=== PATIENT | male | born 1990 | race Caucasian/White ===

== ENCOUNTER 2018-12-31 09:36 | Observation (INO) | payer BC, OTHER ==
[2018-12-31 09:42] VITALS: BMI 34.9
[2018-12-31] MEDS ORDERED: DiphenhydrAMINE 50 mg/ml Inj IV STA (10:12)
[2018-12-31] MEDS ORDERED: Piperacillin/Tazobact 4.5 GM in Sodium Chloride 0.9% 100 ML IVPB STA (10:12)
[2018-12-31] MEDS ORDERED: Sodium Chloride 0.9% 1,000 ML IV STA (10:12)
--- NOTE | 2018-12-31 10:30 | ED PDOC ---
Upper Extremity Pain/Injury Time Seen by Provider: 12/31/18 10:05 Chief Complaint (Nursing): Upper Extremity Problem/Injury Chief Complaint (Provider): Upper Extremity Problem/Injury History Per: Patient History/Exam Limitations: no limitations Onset/Duration Of Symptoms: Days (1) Additional Complaint(s): 28 y/o male presents to the ED complaining of redness, pain, swelling, and itchiness on right dorsum of the hand since yesterday. Patient states the redness progressed up the arm overnight and now into his lower tricep. Patient is unsure if its a bite by something though does note inset bite lesion on dorsum of the hand. He reports he is an employee for a [employer] industry. Patient denies injuries, working with plants or animals, trauma, fever, weakness, or any prior history of skin infections. PMD: none provided Past Medical History Reviewed: Historical Data, Nursing Documentation, Vital Signs Vital Signs: Last Vital Signs Temp 98.8 F 12/31/18 09:42 Pulse 62 12/31/18 09:42 Resp 16 12/31/18 09:42 BP 105/69 12/31/18 09:42 Pulse Ox 96 12/31/18 09:42 Primary Care Provider: Non [facility] Provider, - Medical History PMH: Denies: Chronic Kidney Disease - Surgical History Surgical History: No Surg Hx - Family History Family History: States: No Known Family Hx - Social History Current smoker - smoking cessation education provided: No Alcohol: None - Immunization History Hx Tetanus Toxoid Vaccination: No - Home Medications Home Medications: Ambulatory Orders Medication Instructions Recorded Amoxicillin/Clavulanate [Augmentin 1 tab PO BID #14 tab 01/01/19 875 MG-125 MG] - Allergies Allergies/Adverse Reactions: Allergies Allergy/AdvReac Type Severity Reaction Status Date / Time No Known Allergies Allergy Unverified 05/03/14 16:52 Review of Systems ROS Statement: Except As Marked, All Systems Reviewed And Found Negative Constitutional: Negative for: Fever, Weakness Musculoskeletal: Positive for: Arm Pain (Right.) Neurological: Negative for: Weakness Physical Exam - Reviewed Nursing Documentation Reviewed: Yes Vital Signs Reviewed: Yes - Physical Exam Appears: Positive for: Well, Non-toxic, No Acute Distress Head Exam: Positive for: ATRAUMATIC, NORMAL INSPECTION, NORMOCEPHALIC Skin: Positive for: Normal Color, Warm, Dry Eye Exam: Positive for: EOMI, Normal appearance, PERRL Neck: Positive for: Normal, Painless ROM, Supple Cardiovascular/Chest: Positive for: Regular Rate, Rhythm. Negative for: Murmur Respiratory: Positive for: Normal Breath Sounds. Negative for: Wheezing Gastrointestinal/Abdominal: Positive for: Normal Exam, Soft. Negative for: Tenderness Back: Positive for: Normal Inspection. Negative for: L CVA Tenderness, R CVA Tenderness Extremity: Positive for: Normal ROM, Other (Erythematous endema to dorsum of right hand. Punctual questionable insect bite with tracking lymphangitis up the posterior arm into the lower tricep.) Neurological/Psych: Positive for: Awake, Alert, Normal Tone, Oriented (x3). Negative for: Motor/Sensory Deficits - Laboratory Results Result Diagrams: 01/01/19 05:55 01/01/19 05:55 - ECG O2 Sat by Pulse Oximetry: 96 Medical Decision Making Medical Decision Making: Time:1010 Impression:Likely cellulites with lymphangitis. Area marked with serum marker. Will obtain labs, antibiotics, and dose of Benadryl. Plan: -CMP -Magnesium -CBC -Benadryl 50mg (trial) -Sodium chloride -Zosyn -Blood culture ------- WBC normal given tracking of erythema up R arm in lymphangetic distribution, admit Obs for cellulitis d/w Dr Saxena and care was transferred Scribe Attestation: Documented by Flor Gallegos, acting as a scribe for Irving Swann III. Provider Scribe Attestation: All medical record entries made by the Scribe were at my direction and personally dictated by me. I have reviewed the chart and agree that the record accurately reflects my personal performance of the history, physical exam, medical decision making, and the department course for this patient. I have also personally directed, reviewed, and agree with the discharge instructions and disposition. Disposition - Clinical Impression Clinical Impression: Cellulitis of skin with lymphangitis - Patient ED Disposition Is Patient to be Admitted: Yes - Disposition Disposition Time: 12:30 Condition: STABLE - Pt Status Changed To: Hospital Disposition Of: Observation
[2018-12-31] MEDS ORDERED: DiphenhydrAMINE 50 mg/ml Inj ONE (10:39)
[2018-12-31 10:50] LABS: BASO % 0.5 % (0.0-2.0); EOS # 0.3 K/uL (0.0-0.7); EOS % 3.8 % (0.0-4.0); HEMOGLOBIN 14.4 g/dL (12.0-18.0); MEAN CORPUSCULAR HEMOGLOBIN 30.5 pg (27.0-31.0); MEAN CORPUSCULAR HGB CONC 33.8 g/dL (33.0-37.0); MEAN PLATELET VOLUME 8.6 fl (7.2-11.7); MONO # 0.4 K/uL (0.0-0.8); MONO % 6.6 % (0.0-10.0); NEUT # 3.9 K/uL (1.8-7.0); NEUT % 59.1 % (50.0-75.0); RBC 4.74 Mil/uL (4.40-5.90); RED CELL DISTRIBUTION WIDTH 14.3 % (11.5-14.5); WHITE BLOOD COUNT 6.6 K/uL (4.8-10.8)
[2018-12-31 11:02] LABS: BLOOD UREA NITROGEN 13 mg/dl (9-20); CALCIUM 8.8 mg/dL (8.4-10.2); GFR NON-AFRICAN AMERICAN > 60
[2018-12-31 11:03] LABS: ALB/GLOB RATIO 1.3 (1.0-2.1); ALBUMIN 4.5 g/dL (3.5-5.0); ALT/SGPT 36 U/L (21-72); AST/SGOT 37 U/L (17-59)
--- NOTE | 2018-12-31 13:02 | CP.PCM.HP ---
<AdrianeTreasure - Last Filed: 12/31/18 16:49> History of Present Illness - History of Present Illness History of Present Illness: 28 yo male with no medical history presented to the ED because of right hand and arm erythema. Associated with swelling and pruritis. States that the erythema started yesterday and has increase and began tracking up his right arm. Patient reports he has had multiple mosquito bites in the past 2 weeks, but does not remember an insect biting him in that area. Denies fevers, chills, trauma to the area, working with plants or animals, weakness, or any prior history of skin infections. Ros: negative except for stated above in HPI. PMD: none Family history: Aunt with throat and lung cancer. Family members with heart disease and DM. Social: social drinking, no history of smoking or illicit drug use. Medical history: none Surgical history: denies Medications: none. ED course: Afebrile, vital signs stable - Zosyn x1 dose - Benadryl 50mg IVP - NS 1 L bolus - Blood culture - CBC, CMP, Mag Present on Admission - Present on Admission Any Indicators Present on Admission: No Past Patient History - Past Medical History & Family History Past Medical History?: No - Past Social History Alcohol: None - CARDIAC Hx Cardiac Disorders: No - PULMONARY Hx Respiratory Disorders: No - NEUROLOGICAL Hx Neurological Disorder: No - HEENT Hx HEENT Problems: No - RENAL Hx Chronic Kidney Disease: No - ENDOCRINE/METABOLIC Hx Endocrine Disorders: No - HEMATOLOGICAL/ONCOLOGICAL Hx Blood Disorders: No - INTEGUMENTARY Hx Dermatological Problems: No - MUSCULOSKELETAL/RHEUMATOLOGICAL Hx Musculoskeletal Disorders: No - GASTROINTESTINAL Hx Gastrointestinal Disorders: No - GENITOURINARY/GYNECOLOGICAL Hx Genitourinary Disorders: Yes Other/Comment: HYDROCELE - PSYCHIATRIC Hx Psychophysiologic Disorder: No Hx Substance Use: No - SURGICAL HISTORY Hx Surgeries: Yes Other/Comment: hydrocelectomy on 05/05/2014 - ANESTHESIA Hx Anesthesia: Yes Meds Allergies/Adverse Reactions: Allergies Allergy/AdvReac Type Severity Reaction Status Date / Time No Known Allergies Allergy Unverified 05/03/14 16:52 Physical Exam - Constitutional Appears: Non-toxic, No Acute Distress - Head Exam Head Exam: NORMAL INSPECTION - Eye Exam Eye Exam: Normal appearance - ENT Exam ENT Exam: Mucous Membranes Moist, Normal Exam - Neck Exam Neck exam: Positive for: Normal Inspection - Respiratory Exam Respiratory Exam: Clear to Auscultation Bilateral, NORMAL BREATHING PATTERN. absent: Accessory Muscle Use, Chest Wall Tenderness, Decreased Breath Sounds, Prolonged Expiratory Phase, Rales, Rhonchi, Wheezes, Respiratory Distress, Stridor - Cardiovascular Exam Cardiovascular Exam: REGULAR RHYTHM, +S1, +S2 - GI/Abdominal Exam GI & Abdominal Exam: Normal Bowel Sounds, Soft. absent: Distended, Firm, Guarding, Organomegaly, Pulsatile Mass, Rebound, Rigid, Tenderness - Extremities Exam Extremities exam: Positive for: normal capillary refill, normal inspection, pedal pulses present. Negative for: calf tenderness, joint swelling, pedal edema, tenderness Additional comments: Right hand swollen and erythematous, Insect bite noted at right wrist. Erythema tracking up the right arm until the elbow. - Neurological Exam Neurological exam: Alert, Oriented x3 - Psychiatric Exam Psychiatric exam: Normal Affect, Normal Mood - Skin Skin Exam: Dry, Intact, Normal Color, Warm Results - Vital Signs Recent Vital Signs: Last Vital Signs Temp 98.8 F 12/31/18 09:42 Pulse 62 12/31/18 09:42 Resp 16 12/31/18 09:42 BP 105/69 12/31/18 09:42 Pulse Ox 96 12/31/18 10:43 - Labs Result Diagrams: 12/31/18 10:15 12/31/18 10:15 Labs: Laboratory Results - last 24 hr 12/31/18 12/31/18 10:15 10:15 WBC 6.6 RBC 4.74 Hgb 14.4 Hct 42.7 MCV 90.0 MCH 30.5 MCHC 33.8 RDW 14.3 Plt Count 223 MPV 8.6 Neut % (Auto) 59.1 Lymph % (Auto) 30.0 [place] % (Auto) 6.6 Eos % (Auto) 3.8 Baso % (Auto) 0.5 Neut # (Auto) 3.9 Lymph # (Auto) 2.0 [place] # (Auto) 0.4 Eos # (Auto) 0.3 Baso # (Auto) 0.0 Sodium 136 Potassium 5.1 H Chloride 102 Carbon Dioxide 26 Anion Gap 13 BUN 13 Creatinine 0.6 L Est GFR ( Amer) > 60 Est GFR (Non-Af Amer) > 60 Random Glucose 100 Calcium 8.8 Magnesium 2.0 Total Bilirubin 0.9 AST 37 ALT 36 Alkaline Phosphatase 41 Total Protein 8.0 Albumin 4.5 Globulin 3.6 Albumin/Globulin Ratio 1.3 Assessment & Plan (1) Acute lymphangitis Status: Acute - Assessment and Plan (Free Text) Assessment: 28 yo male with no medical history presented to the ED because of right hand and arm erythema admitted for lymphangitis. Plan: Lymphangitis - Admit to Med/Surg - Afebrile - Insect bite noted on right wrist. - significant erythema and swelling of right hand tracking up the right arm. - Regular diet - Zosyn Q6H DVT prophylaxis - SCD's and ambulation <Arcenio Saxena D - Last Filed: 12/31/18 17:22> Results - Vital Signs Recent Vital Signs: Last Vital Signs Temp 97.9 F 12/31/18 15:48 Pulse 62 12/31/18 15:48 Resp 16 12/31/18 15:48 BP 106/69 12/31/18 15:48 Pulse Ox 99 12/31/18 15:48 - Labs Result Diagrams: 12/31/18 10:15 12/31/18 10:15 Labs: Laboratory Results - last 24 hr 12/31/18 12/31/18 10:15 10:15 WBC 6.6 RBC 4.74 Hgb 14.4 Hct 42.7 MCV 90.0 MCH 30.5 MCHC 33.8 RDW 14.3 Plt Count 223 MPV 8.6 Neut % (Auto) 59.1 Lymph % (Auto) 30.0 [place] % (Auto) 6.6 Eos % (Auto) 3.8 Baso % (Auto) 0.5 Neut # (Auto) 3.9 Lymph # (Auto) 2.0 [place] # (Auto) 0.4 Eos # (Auto) 0.3 Baso # (Auto) 0.0 Sodium 136 Potassium 5.1 H Chloride 102 Carbon Dioxide 26 Anion Gap 13 BUN 13 Creatinine 0.6 L Est GFR ( Amer) > 60 Est GFR (Non-Af Amer) > 60 Random Glucose 100 Calcium 8.8 Magnesium 2.0 Total Bilirubin 0.9 AST 37 ALT 36 Alkaline Phosphatase 41 Total Protein 8.0 Albumin 4.5 Globulin 3.6 Albumin/Globulin Ratio 1.3 Attending/Attestation - Attestation I have personally seen and examined this patient.: Yes I have fully participated in the care of the patient.: Yes I have reviewed all pertinent clinical information: Yes Notes (Text): 12/31/18 17:21 Patient seen and examined with resident. Case discussed and agreed with assessment and plan of management.
[2018-12-31] MEDS: Piperacillin/Tazobact 3.375 GM in Sodium Chloride 0.9% 100 ML IVPB SCH ×2 (13:15→19:16)
[2018-12-31] MEDS ORDERED: DiphenhydrAMINE 12.5 mg/5 ml LIQ UD (5 ml) PO PRN (16:17)
[2018-12-31] MEDS ORDERED: Piperacillin/Tazobact 3.375 gm Inj IVPB ONE (19:13)
[2018-12-31] MEDS ORDERED: DiphenhydrAMINE 50 mg/ml Inj IVP STA (22:56)
[2019-01-01] MEDS: Piperacillin/Tazobact 3.375 GM in Sodium Chloride 0.9% 100 ML IVPB SCH ×2 (01:37→06:19)
[2019-01-01 07:38] LABS: HEMOGLOBIN 13.9 g/dL (12.0-18.0); MEAN CELL VOLUME 89.5 fl (80.0-94.0); MEAN CORPUSCULAR HEMOGLOBIN 30.2 pg (27.0-31.0); MEAN CORPUSCULAR HGB CONC 33.8 g/dL (33.0-37.0); RBC 4.59 Mil/uL (4.40-5.90); RED CELL DISTRIBUTION WIDTH 13.7 % (11.5-14.5)
[2019-01-01 07:47] LABS: BLOOD UREA NITROGEN 18 mg/dl (9-20); GFR NON-AFRICAN AMERICAN > 60
[2019-01-01 08:10] VITALS: BP 97/66; PULSE 58; RESP 22; TEMP 98
--- NOTE | 2019-01-01 09:57 | CP.PCM.DIS ---
Provider - Provider Date of Admission: 12/31/18 12:29 Attending physician: rAcenio Saxena MD Time Spent in preparation of Discharge (in minutes): 25 Diagnosis - Discharge Diagnosis (1) Cellulitis Status: Acute Comment: redness and swelling gradually dissipating. Augmentin 875/125 PO BID for 7 days Hospital Course - Lab Results Lab Results: Most Recent Lab Values WBC 7.0 K/uL (4.8-10.8) 01/01/19 05:55 RBC 4.59 Mil/uL (4.40-5.90) 01/01/19 05:55 Hgb 13.9 g/dL (12.0-18.0) 01/01/19 05:55 Hct 41.1 % (35.0-51.0) 01/01/19 05:55 MCV 89.5 fl (80.0-94.0) 01/01/19 05:55 MCH 30.2 pg (27.0-31.0) 01/01/19 05:55 MCHC 33.8 g/dL (33.0-37.0) 01/01/19 05:55 RDW 13.7 % (11.5-14.5) 01/01/19 05:55 Plt Count 223 K/uL (130-400) 01/01/19 05:55 MPV 8.6 fl (7.2-11.7) 12/31/18 10:15 Neut % (Auto) 59.1 % (50.0-75.0) 12/31/18 10:15 Lymph % (Auto) 30.0 % (20.0-40.0) 12/31/18 10:15 [place] % (Auto) 6.6 % (0.0-10.0) 12/31/18 10:15 Eos % (Auto) 3.8 % (0.0-4.0) 12/31/18 10:15 Baso % (Auto) 0.5 % (0.0-2.0) 12/31/18 10:15 Neut # (Auto) 3.9 K/uL (1.8-7.0) 12/31/18 10:15 Lymph # (Auto) 2.0 K/uL (1.0-4.3) 12/31/18 10:15 [place] # (Auto) 0.4 K/uL (0.0-0.8) 12/31/18 10:15 Eos # (Auto) 0.3 K/uL (0.0-0.7) 12/31/18 10:15 Baso # (Auto) 0.0 K/uL (0.0-0.2) 12/31/18 10:15 Sodium 139 mmol/l (132-148) 01/01/19 05:55 Potassium 4.2 MMOL/L (3.6-5.0) 01/01/19 05:55 Chloride 104 mmol/L (98-107) 01/01/19 05:55 Carbon Dioxide 25 mmol/L (22-30) 01/01/19 05:55 Anion Gap 14 (10-20) 01/01/19 05:55 BUN 18 mg/dl (9-20) 01/01/19 05:55 Creatinine 1.0 mg/dl (0.8-1.5) 01/01/19 05:55 Est GFR ( Amer) > 60 01/01/19 05:55 Est GFR (Non-Af Amer) > 60 01/01/19 05:55 Random Glucose 108 mg/dL (75-110) 01/01/19 05:55 Calcium 9.0 mg/dL (8.4-10.2) 01/01/19 05:55 Magnesium 2.0 MG/DL (1.6-2.3) 12/31/18 10:15 Total Bilirubin 0.9 mg/dl (0.2-1.3) 12/31/18 10:15 AST 37 U/L (17-59) 12/31/18 10:15 ALT 36 U/L (21-72) 12/31/18 10:15 Alkaline Phosphatase 41 U/L (38-126) 12/31/18 10:15 Total Protein 8.0 G/DL (6.3-8.2) 12/31/18 10:15 Albumin 4.5 g/dL (3.5-5.0) 12/31/18 10:15 Globulin 3.6 gm/dL (2.2-3.9) 12/31/18 10:15 Albumin/Globulin Ratio 1.3 (1.0-2.1) 12/31/18 10:15 - Hospital Course Hospital Course: 28 yo male with no significant PMH came in with pain and red swelling of the right hand with linear red streak extending to the arm. Patient was put on observation and started on IV Zosyn and Vanco. Today patient claimed pain was relieved and redness and swelling of the right hand dissipating. Patient was discharged in stable condition and was advised to continue Augmentin 2 times a day for a week. Discharge Exam - Head Exam Head Exam: NORMAL INSPECTION - Eye Exam Eye Exam: absent: Scleral icterus - ENT Exam ENT Exam: Mucous Membranes Moist - Respiratory Exam Respiratory Exam: absent: Rales, Rhonchi, Wheezes, Respiratory Distress - Cardiovascular Exam Cardiovascular Exam: REGULAR RHYTHM, +S1, +S2 - GI/Abdominal Exam GI & Abdominal Exam: Soft. absent: Tenderness - Rectal Exam Rectal Exam: Deferred - Extremities Exam Additional comments: right hand swelling and redness clearing up. - Neurological Exam Neurological exam: Alert, Oriented x3 - Psychiatric Exam Psychiatric exam: Normal Affect - Skin Skin Exam: Dry, Intact Discharge Plan - Discharge Medications Prescriptions: Amoxicillin/Clavulanate [Augmentin 875 MG-125 MG] 1 tab PO BID #14 tab - Follow Up Plan Condition: STABLE Disposition: HOME/ ROUTINE Instructions: Cellulitis (Skin Infection), Adult (DC) Referrals: [facility] [place] [Outside]
[2019-01-03 17:40] VITALS: O2SAT 96
== END 2019-01-01 12:35 | disposition home or self-care (01) ==
LOC: H.ER 09:36 → H.ERHOLD 12:29 → H.MEDSURG1 20:33
DX: L03.113 Cellulitis of right upper limb (principal); L29.9 Pruritus, unspecified; Z80.1 Family history of malignant neoplasm of trachea, bronchus and lung; Z83.3 Family history of diabetes mellitus; N43.3 Hydrocele, unspecified; W57.XXXA Bitten or stung by nonvenomous insect and other nonvenomous arthropods, initial encounter
CPT/HCPCS: 36415; 80048; 80053; 83735; 85025; 85027; 87040; 96361; 96365; 96366; 96367; 96375; 99284; G0378; J1200; J2543; J7030